=== PATIENT | female | born 1955 | race Caucasian/White ===

== ENCOUNTER → 2018-02-20 | Outpatient (CLI) | payer OTHER | END | disposition home or self-care (01) | LOC: LAB SHORT 09:04 → LAB EV 09:04 | DX: R30.0 Dysuria (principal) | CPT/HCPCS: 87086 ==

== ENCOUNTER → 2018-10-11 | Outpatient (CLI) | payer OTHER ==
[2018-10-12 06:44] LABS: Candida species (DNA Probe) Negative (NEGATIVE); G. vaginalis (DNA Probe) Positive (NEGATIVE); T. vaginalis (DNA Probe) Negative (NEGATIVE)
== END | disposition home or self-care (01) ==
LOC: LAB EV 18:08 → LAB SHORT 18:08
PROVIDERS: Physician Assistant
DX: N76.0 Acute vaginitis (principal)
CPT/HCPCS: 87480; 87510; 87660

== ENCOUNTER → 2019-07-09 | Outpatient (CLI) | payer OTHER ==
[2019-07-11 13:07] LABS: HPV 16 Negative (Negative); HPV 18 Negative (Negative); HPV OTHER HR TYPES Negative (Negative)
== END | disposition home or self-care (01) ==
LOC: LAB SHORT 15:55 → LAB EV 15:55
PROVIDERS: Nurse Practitioner Family
DX: Z01.419 Encounter for gynecological examination (general) (routine) without abnormal findings (principal); N76.0 Acute vaginitis
CPT/HCPCS: 87070; 87147; 87205; 87624; G0145

== ENCOUNTER 2022-03-20 10:02 | Day surgery (SDC) | payer OTHER ==
[~2022-03-20] VITALS: Ht 170.2 cm; Wt 87.9 kg
[~2022-03-20 10:02] MED LIST: ATHLETE'S FOO35.4 GM TOP; ATOR20 PO; ESTRADIOL42.5 GM TOP; INSULANI SC; LISI5 PO; METF500 PO; NYSTRIT TOP; ONDA4ODT MM; TRAM50 PO
[2022-03-20 12:06] LABS: Source, Urine Clean Catch
[2022-03-20 12:42] LABS: Appearance, Urine Cloudy (Clear); Bilirubin, Urine Neg (Neg); Blood, Urine 3+ (Neg); Color, Urine Yellow (P-Yellow); Glucose Qualitative, Urine Neg (Neg); Ketones, Urine Neg (Neg); Leukocyte Esterase, Urine 3+ (Neg); Nitrite, Urine Pos (Neg); Protein, Urine 3+ (Neg); Specific Gravity, Urine 1.015 (1.003-1.022); Urobilinogen, Urine NORM (Normal)
[2022-03-20 13:00] LABS: Bacteria Many /hpf; Squamous Epithelial Cells Not Seen /hpf (Few); White Blood Cells, Urine TNTC /hpf (0-5)
--- NOTE | 2022-03-20 14:31 | NUR ---
1420- RIOJAS DC'S AND PAD CHANGED, SMALL AMOUNT OF BLOOD ON JUAN PAD THAT WAS PLACED IN OR. VSS. PERCOCET WAS GIVEN PER ORDER. PT TOLERATED JELLO AND WATER WELL. Discharge instructions reviewed with patient. Patient verbalizes understanding. Copy given to patient to take home. PT VERBALIZED UNDERSTANDING TO CALL DR OFFICE IF HAVING DIFFICULTIES VOIDING. Discharged via wheelchair to private car for ride home.
== END 2022-03-20 14:30 | disposition home or self-care (01) ==
LOC: ORSCMMR 10:02 → ORD 12:00 → ORSCMMR 14:30
PROVIDERS: Obstetrics & Gynecology
PROC: 0UDB8ZX Extraction of Endometrium, Via Natural or Artificial Opening Endoscopic, Diagnostic (ICD-10-PCS; principal; 2022-03-20 12:00)
PROC: 0UB98ZX Excision of Uterus, Via Natural or Artificial Opening Endoscopic, Diagnostic (ICD-10-PCS; principal; 2022-03-20 12:00)
DX: N95.0 Postmenopausal bleeding (principal); N84.0 Polyp of corpus uteri; R93.89 Abnormal findings on diagnostic imaging of other specified body structures; I10 Essential (primary) hypertension; E11.9 Type 2 diabetes mellitus without complications; E78.5 Hyperlipidemia, unspecified; Z79.4 Long term (current) use of insulin; Z79.899 Other long term (current) drug therapy
CPT/HCPCS: 81001; 82947; 87077; 87086; 87186; 88305; A9270; J2405; J2704; J3010; J7120

== ENCOUNTER → 2024-04-09 | Outpatient (CLI) | payer OTHER ==
[2024-04-10 11:13] LABS: Creatinine, Urine Random 91.6 mg/dL (27.00-270.00)
[2024-04-10 11:16] LABS: Microalb/Creat Ratio UR, Rand 126.638 mg/g (0.000-30.000)
== END ==
LOC: LAB SHORT 21:30 → LAB 21:30
PROVIDERS: Internal Medicine Endocrinology, Diabetes & Metabolism
DX: E11.29 Type 2 diabetes mellitus with other diabetic kidney complication (principal)
CPT/HCPCS: 82043; 82570